=== PATIENT | female | born 1955 | race Caucasian/White ===

== ENCOUNTER 2020-09-15 10:58 | Inpatient (IN) | payer MEDICARE, OTHER ==
[~2020-09-15] VITALS: Ht 154.9 cm; Wt 165.0 kg
--- NOTE | 2020-09-15 11:52 | NUR ---
PT HAS CO ABDOMINAL PAIN, "I THINK IT IS APPENDICITIS" PAIN FOR 6 WEEKS. LLQ. N/V . DENIES FURTHER HEALTH HISTOYR.
[2020-09-15] MEDS ORDERED: SODIUM CHLORIDE FLUSH 10ML SYR IVF ONE (12:00)
[2020-09-15 12:20] LABS: BASOPHILS % (AUTO) 1 % (0-1); EOSINOPHILS % (AUTO) 1 % (1-7); LYMPHOCYTES % (AUTO) 23 % (22-44); MEAN CORPUSCULAR HEMOGLOBIN 31.5 pg (27.0-34.8); MEAN CORPUSCULAR HGB CONC 33.3 g/dL (32.4-35.8); MONOCYTES % (AUTO) 10 % (2-9); NEUTROPHILS % (AUTO) 65 % (42-75); PLATELET COUNT 358 x10^3/uL (130-400); RED BLOOD COUNT 4.88 x10^6/uL (3.82-5.3); RED CELL DISTRIBUTION WIDTH 14.2 % (9.6-15.2)
[2020-09-15 12:30] LABS: ALANINE AMINOTRANSFERASE 13 U/L (12-78); ALBUMIN 2.7 g/dL (3.4-5.0); ANION GAP 8 mmol/L (5-15); CALCIUM 8.9 mg/dL (8.5-10.1); CHLORIDE 103 mmol/L (98-107); CREATININE 0.99 mg/dL (0.55-1.02)
[2020-09-15 12:32] LABS: ALKALINE PHOSPHATASE 80 U/L (45-117); BILIRUBIN,TOTAL 0.7 mg/dL (0.2-1.0); TOTAL PROTEIN 7.1 g/dL (6.4-8.2)
--- NOTE | 2020-09-15 12:46 | NUR ---
PT TO CT.
[2020-09-15] MEDS ORDERED: SODIUM CHLORIDE FLUSH 10ML SYR IVF PRN (14:30)
[2020-09-15] MEDS ORDERED: ENALAPRILAT 1.25 MG/ML, 2ML IVPush PRN (15:00)
[2020-09-15] MEDS ORDERED: ONDANSETRON 2MG/ML, 2ML IVPush PRN (15:00)
--- NOTE | 2020-09-15 15:00 | NUR ---
hospitalist and gi 's at bedside for assessment
--- NOTE | 2020-09-15 16:30 | NUR ---
pt reports some lower abd pain, states pain is tolerable and does not want any pain meds at this time
--- NOTE | 2020-09-15 16:43 | NUR ---
pt transfered to hospital bed
--- NOTE | 2020-09-15 16:45 | NUR ---
attempt to call report, RN unavailable
--- NOTE | 2020-09-15 16:48 | NUR ---
pt states if her chest CT shows evidence of mets, she does not want to have the colonoscopy tomorrow, and does not want to have any surgeries.
--- NOTE | 2020-09-15 17:07 | NUR ---
report to GAUTAM Ni
[2020-09-15 18:45] VITALS: BP 119/73
[2020-09-15] MEDS: MOVIPREP POWDER 1 PREP KIT PO SCH (21:43)
[2020-09-16 01:42] VITALS: BP 128/84
[2020-09-16] MEDS: MOVIPREP POWDER 1 PREP KIT PO SCH (02:58)
[2020-09-16 07:39] VITALS: BP 111/74
[2020-09-16] MEDS: PANTOPRAZOLE 40 MG IV IVPush SCH (09:30)
[2020-09-16 13:50] VITALS: BP 114/76
[2020-09-16] MEDS ORDERED: PROPOFOL 10 MG/ML, 20ML ONE (14:48)
[2020-09-16] MEDS ORDERED: PROMETHAZINE 25 MG/ML, 1ML IVPush PRN (15:30)
[2020-09-16] MEDS ORDERED: FENTANYL PF 100 MCG/2ML IV PRN (15:30)
[2020-09-16] MEDS ORDERED: HYDROmorphone 1 MG/ML, 1ML INJ IVPush PRN (15:30)
[2020-09-16] MEDS ORDERED: MEPERIDINE/PF 25MG/0.5ML IVPush PRN (15:30)
[2020-09-16] MEDS ORDERED: LORazepam 2 MG/ML, 1ML IVPush PRN (15:30)
[2020-09-16] MEDS ORDERED: ACETAMINOPHEN 325 MG TABLET PO PRN (15:30)
[2020-09-16] MEDS ORDERED: OXYcodone 5 MG/5 ML ORAL.SOL UDC PO PRN (15:30)
[2020-09-16] MEDS ORDERED: LABETALOL 5MG/ML, 20ML IV PRN (15:30)
[2020-09-16] MEDS ORDERED: ONDANSETRON 2MG/ML, 2ML IVPush PRN (15:30)
[2020-09-16] MEDS ORDERED: METHOCARBAMOL 1,000 MG in DEXTROSE 5% 100 ML IV PRN (15:30)
[2020-09-16] MEDS ORDERED: EPHEDRINE 50 MG/ML, 1ML IVPush PRN (15:30)
[2020-09-16] MEDS ORDERED: hydrALAzine 20 MG/ML, 1ML IV PRN (15:30)
[2020-09-16 19:04] VITALS: BP 102/68
[2020-09-16] MEDS: ACETAMINOPHEN 325 MG TABLET PO PRN (21:39)
[2020-09-17 01:04] VITALS: BP 126/80
[2020-09-17] MEDS: ACETAMINOPHEN 325 MG TABLET PO PRN (02:06)
[2020-09-17 06:55] VITALS: BP 132/84
[2020-09-17] MEDS: PANTOPRAZOLE 40 MG IV IVPush SCH (09:00)
[2020-09-17] MEDS: MORPHINE SULFATE 4 MG/ML, 1ML IVPush PRN ×2 (09:01→16:53)
[2020-09-17] MEDS ORDERED: OMNIPAQUE 350 MG/ML, 100ML BOTTLE ONE (10:00)
[2020-09-17 12:35] VITALS: BP 137/82
[2020-09-17 18:50] VITALS: BP 107/70
[2020-09-18 00:52] VITALS: BP 133/84
[2020-09-18 07:54] VITALS: BP 114/84
[2020-09-18] MEDS: PANTOPRAZOLE 40 MG IV IVPush SCH (08:33)
[2020-09-18] MEDS: MORPHINE SULFATE 4 MG/ML, 1ML IVPush PRN (08:33)
[2020-09-18 13:43] VITALS: BP 116/74
[2020-09-18] MEDS ORDERED: HYDROcodone/APAP 5/325 TABLET PO PRN (14:00)
[2020-09-18 19:35] VITALS: BP 104/69
[2020-09-18] MEDS: DOCUSATE 100 MG CAPSULE PO SCH (20:42)
[2020-09-19 03:04] VITALS: BP 116/77
[2020-09-19 06:29] VITALS: BP 107/71
[2020-09-19] MEDS: DOCUSATE 100 MG CAPSULE PO SCH (09:00)
[2020-09-19] MEDS ORDERED: POLYETHYLENE GLYCOL 17 GM PACKET PO SCH (09:00)
[2020-09-19] MEDS: PANTOPRAZOLE 40 MG IV IVPush SCH (09:26)
[2020-09-19 12:51] VITALS: BP 101/66
[2020-09-19] MEDS ORDERED: FENTANYL PF 100 MCG/2ML ONE (13:28)
[2020-09-19] MEDS ORDERED: MIDAZOLAM 1 MG/ML, 5ML ONE ×2 (13:28)
[2020-09-19] MEDS ORDERED: FLUMAZENIL 0.1 MG/1 ML, 5ML ONE (13:28)
[2020-09-19] MEDS ORDERED: NALOXONE 1 MG/ML, 2ML ONE (13:28)
[2020-09-19] MEDS: ACETAMINOPHEN 325 MG TABLET PO PRN (15:11)
[2020-09-19] MEDS ORDERED: HYDR-2214 PO (17:10)
== END 2020-09-19 17:24 | disposition home or self-care (01) | DRG 375 ==
LOC: ED 11:53 → EDIP 14:24 → 4NW 17:25
PROVIDERS: ADMIT Emergency Medicine; ATTEND Family Medicine
PROC: 0DBC8ZX Excision of Ileocecal Valve, Via Natural or Artificial Opening Endoscopic, Diagnostic (ICD-10-PCS; principal; 2020-09-16 15:30)
PROC: 0DB Gastrointestinal System, Excision (ICD-10-PCS; 2020-09-19)
DX: C18.0 Malignant neoplasm of cecum (principal); C18.9 Malignant neoplasm of colon, unspecified; C77.2 Secondary and unspecified malignant neoplasm of intra-abdominal lymph nodes; Z68.44 Body mass index [BMI] 60.0-69.9, adult; E46 Unspecified protein-calorie malnutrition; Z20.822 Contact with and (suspected) exposure to COVID-19; E66.01 Morbid (severe) obesity due to excess calories; K57.30 Diverticulosis of large intestine without perforation or abscess without bleeding; K76.89 Other specified diseases of liver; Z90.710 Acquired absence of both cervix and uterus; Z80.8 Family history of malignant neoplasm of other organs or systems; Z98.84 Bariatric surgery status; Z96.642 Presence of left artificial hip joint
CPT/HCPCS: 36415; 49180; 70491; 71250; 74177; 77012; 80053; 82105; 82378; 83690; 85025; 86304; 87635; 88305; 88333; 93005; 99156; 99157; G0378; J2250; J2704; J3010; Q9967; C9113; J2270; J2310

== ENCOUNTER 2020-10-20 09:12 | Day surgery (SDC) | payer MEDICAID, MEDICARE ==
[~2020-10-20] VITALS: Ht 154.9 cm; Wt 165.6 kg
[~2020-10-20 09:12] MED LIST: HYDR-2214 PO
[2020-10-20 09:36] VITALS: BP 138/89
[2020-10-20] MEDS ORDERED: FURO-93 PO (09:41)
[2020-10-20] MEDS ORDERED: CHLORHEXIDINE 15 ML UDC ONE (09:46)
[2020-10-20] MEDS ORDERED: CHLORHEXIDINE 15 ML UDC PO ONE (10:00)
[2020-10-20] MEDS ORDERED: LACTATED RINGERS 1,000 ML IV SCH (10:00)
[2020-10-20] MEDS ORDERED: FENTANYL PF 100 MCG/2ML ONE (10:55)
[2020-10-20] MEDS ORDERED: MIDAZOLAM 1 MG/ML, 2ML ONE (10:55)
[2020-10-20] MEDS ORDERED: ONDANSETRON 2MG/ML, 2ML ONE ×2 (11:11→11:28)
[2020-10-20] MEDS ORDERED: BUPIVACAINE/PF 0.5% ONE (11:15)
[2020-10-20] MEDS ORDERED: EPINEPHRINE 1 MG/ML, 1ML ONE (11:16)
[2020-10-20] MEDS ORDERED: HEPARIN 1,000 UNITS/ML, 30ML ONE (11:16)
[2020-10-20] MEDS ORDERED: SUCCINYLCHOLINE 20 MG/ML, 10ML ONE (11:28)
[2020-10-20] MEDS ORDERED: CEFAZOLIN 1,000 MG ONE (11:28)
[2020-10-20] MEDS ORDERED: ROCURONIUM 10 MG/ML,10ML ONE (11:28)
[2020-10-20] MEDS ORDERED: DEXAMETHASONE 4 MG/ML, 1ML ONE (11:28)
[2020-10-20] MEDS ORDERED: PROPOFOL 10 MG/ML, 20ML ONE (11:28)
[2020-10-20] MEDS ORDERED: MEPERIDINE/PF 25MG/0.5ML IVPush PRN (11:30)
[2020-10-20] MEDS ORDERED: FENTANYL PF 100 MCG/2ML IV PRN (11:30)
[2020-10-20] MEDS ORDERED: OXYcodone 5 MG/5 ML ORAL.SOL UDC PO PRN (11:30)
[2020-10-20] MEDS ORDERED: PROMETHAZINE 25 MG/ML, 1ML IVPush PRN (11:30)
[2020-10-20] MEDS ORDERED: ONDANSETRON 2MG/ML, 2ML IVPush ONE (11:30)
[2020-10-20] MEDS ORDERED: HYDROmorphone 1 MG/ML, 1ML INJ IVPush PRN (11:30)
[2020-10-20] MEDS ORDERED: ONDANSETRON 2MG/ML, 2ML IVPush PRN (11:30)
[2020-10-20] MEDS ORDERED: HYDROcodone/APAP 7.5-325MG/15ML UDC PO PRN (11:30)
[2020-10-20] MEDS ORDERED: VISIPAQUE 270 MG/ML, 50ML BOTTLE IV ONE (11:50)
[2020-10-20] MEDS ORDERED: VISIPAQUE 270 MG/ML, 50ML BOTTLE ONE (11:51)
== END 2020-10-20 14:12 | disposition home or self-care (01) ==
LOC: OUT 09:12
PROVIDERS: ATTEND Surgery
DX: C83.38 Diffuse large B-cell lymphoma, lymph nodes of multiple sites (principal); I10 Essential (primary) hypertension; M19.90 Unspecified osteoarthritis, unspecified site; G89.4 Chronic pain syndrome; E66.01 Morbid (severe) obesity due to excess calories; F12.90 Cannabis use, unspecified, uncomplicated; Z20.822 Contact with and (suspected) exposure to COVID-19; Z68.44 Body mass index [BMI] 60.0-69.9, adult; Z79.891 Long term (current) use of opiate analgesic; Z79.899 Other long term (current) drug therapy; Z90.49 Acquired absence of other specified parts of digestive tract; Z98.84 Bariatric surgery status; Z98.890 Other specified postprocedural states
CPT/HCPCS: 36561; J0171; J0330; J0690; J1100; J1644; J2250; J2405; J2704; J3010; J7120; Q9966; U0003; U0005; 76000

== ENCOUNTER 2020-11-01 11:34 | Outpatient (CLI) | payer MEDICARE | END 2020-11-01 23:59 | disposition home or self-care (01) | LOC: CVU 11:34 | PROVIDERS: ATTEND Specialist | DX: C83.33 Diffuse large B-cell lymphoma, intra-abdominal lymph nodes (principal); I51.7 Cardiomegaly; Z79.899 Other long term (current) drug therapy ==

== ENCOUNTER 2020-11-02 08:24 | Day surgery (SDC) | payer MEDICARE ==
[~2020-11-02] VITALS: Ht 154.9 cm; Wt 166.0 kg
[~2020-11-02 08:24] MED LIST changes: +FURO-93 PO
[2020-11-02] MEDS ORDERED: CEFAZOLIN PMX 1GM/50ML 50 ML IV ONE (09:30)
[2020-11-02] MEDS ORDERED: SODIUM CHLORIDE 0.9% 1,000 ML IV SCH (09:30)
[2020-11-02] MEDS ORDERED: CEFAZOLIN PMX 1GM/50ML 50 ML ONE (09:51)
[2020-11-02 09:52] VITALS: BP 138/81
[2020-11-02 10:00] LABS: BASOPHILS % (AUTO) 1 % (0-1); EOSINOPHILS % (AUTO) 1 % (1-7); LYMPHOCYTES % (AUTO) 13 % (22-44); MEAN CORPUSCULAR HEMOGLOBIN 31.5 pg (27.0-34.8); MEAN CORPUSCULAR HGB CONC 33.4 g/dL (32.4-35.8); MONOCYTES % (AUTO) 9 % (2-9); NEUTROPHILS % (AUTO) 77 % (42-75); PLATELET COUNT 405 x10^3/uL (130-400); RED BLOOD COUNT 4.31 x10^6/uL (3.82-5.3); RED CELL DISTRIBUTION WIDTH 18.1 % (9.6-15.2)
[2020-11-02] MEDS ORDERED: GABA100C PO (10:01)
[2020-11-02] MEDS ORDERED: NALOXONE 1 MG/ML, 2ML ONE (10:19)
[2020-11-02] MEDS ORDERED: MIDAZOLAM 1 MG/ML, 5ML ONE (10:19)
[2020-11-02] MEDS ORDERED: FLUMAZENIL 0.1 MG/1 ML, 5ML ONE (10:19)
[2020-11-02] MEDS ORDERED: FENTANYL PF 100 MCG/2ML ONE ×2 (10:19→11:14)
[2020-11-02] MEDS ORDERED: ONDANSETRON 2MG/ML, 2ML ONE (11:05)
[2020-11-02] MEDS ORDERED: LIDOCAINE 1%, 10ML ONE (11:24)
== END 2020-11-02 13:15 | disposition home or self-care (01) ==
LOC: OUT 08:24
PROVIDERS: ATTEND Specialist
DX: C83.33 Diffuse large B-cell lymphoma, intra-abdominal lymph nodes (principal); Z79.899 Other long term (current) drug therapy
CPT/HCPCS: 36415; 36561; 38222; 76937; 77001; 77012; 85025; 85060; 85097; 88237; 88264; 88280; 88305; 88311; 88313; 99156; 99157; C1788; C1894; J0690; J2250; J2405; J3010; 88184; 88185; J2310